=== PATIENT | female | born 1960 | race Caucasian/White ===

== ENCOUNTER 2018-11-04 12:29 | Inpatient (IN) | payer OTHER ==
[~2018-11-04] VITALS: Ht 167.6 cm; Wt 77.6 kg
--- NOTE | 2018-11-04 13:11 | NUR ---
TO ROOM 8 FOR EVAL.
--- NOTE | 2018-11-04 13:17 | NUR ---
DR. PICKENS AT BEDSIDE FOR MSE.
[2018-11-04 14:12] LABS: BASOPHIL % 0 % (0-2); PLATELET COUNT 251 x10^3mcL (130-400); RED CELL DISTRIBUTION WIDTH 13.4 % (11.5-14.5)
[2018-11-04 14:21] LABS: CALCIUM 8.4 mg/dL (8.5-10.1); CARBON DIOXIDE 24.8 mmol/L (21-32); CHLORIDE SERUM 98 mmol/L (98-107); CREATININE SERUM 0.9 mg/dL (0.6-1.0); GFR1 > 60 mL/min; GLUCOSE SERUM 134 mg/dL (74-106); POTASSIUM SERUM 3.4 mmol/L (3.5-5.1); SODIUM SERUM 134 mmol/L (136-145)
[2018-11-04 14:33] LABS: ALBUMIN 3.4 g/dL (3.4-5.0); ALKALINE PHOSPHATASE 61 U/L (46-116); ALT/SGPT 35 U/L (14-59); AST/SGOT 26 U/L (15-37); BILIRUBIN TOTAL 0.58 mg/dL (0.20-1.00); CHOLESTEROL 152 mg/dL (<200); HDL CHOLESTEROL 55 mg/dL (40-60); LIPASE 95 IU/L (73-393); MAGNESIUM 1.9 mg/dL (1.8-2.4); T4(THYROXINE) 8.6 ug/dL (4.7-13.3); TOTAL PROTEIN, SERUM 7.2 g/dL (6.4-8.2)
--- NOTE | 2018-11-04 15:12 | NUR ---
PATIENT OUT OF UNIT FOR XRAY AT THIS TIME//APR RN
[2018-11-04 15:35] LABS: microscopic required? YES; urine erythrocyte 2+ (NEGATIVE)
[2018-11-04 15:44] LABS: AMPHETAMINE QUAL UR NONE DETECTED (See below)
--- NOTE | 2018-11-04 16:25 | NUR ---
DR PICKENS AT BEDSIDE FOR REVAL AT THIS TIME, RN AT BEDSIDE//APR RN
[2018-11-04] MEDS ORDERED: TRINTELLIX5 MG PO (17:17)
[2018-11-04] MEDS ORDERED: LUNESTA2 M1 PO (17:18)
--- NOTE | 2018-11-04 17:21 | NUR ---
PATIENT AMBULATED TO RESTROOM, STATES PAIN "IS BETTER THAT EARLIER."//APR RN
--- NOTE | 2018-11-04 17:39 | NUR ---
DR LUNDBERG AT BEDSIDE FOR EVAL FOR ADMISSION AT THIS TIME//APR RN
[2018-11-04 18:19] LABS: CHOLESTEROL/HDL RATIO 2.9
--- NOTE | 2018-11-04 19:11 | NUR ---
PATIENT AMBULATED TO RESTROOM, RETURNED TO ROOM 8 AND C/O SEVERE LOW ABD PAIN 04/10. ADMITTING PRN MED GIVEN AT THIS TIME//APR RN
--- NOTE | 2018-11-04 19:15 | NUR ---
REPORT RECIEVED FROM GOLD TAMAYO. PT AWAKE AND ALERT, 2 BED RAILS UP, BED IN LOW AND LOCKED POSITION, CALL LIGHT W/IN REACH. NAD NOTED AT THIS TIME.
--- NOTE | 2018-11-04 20:08 | NUR ---
REPORT GIVEN TO MANDEEP TAMAYO
--- NOTE | 2018-11-04 20:15 | NUR ---
RECEIVED PT FROM ER FOR DIVERTICULITIS, INFLUENZA, PT IS A/O X4, VERBAL RESPONSIVE, ABLE TO TELL WHAT SHE NEEDS. LUNG SOUND WHEEZING WENDY, DENY ANY SOB AT THIS MOMENT, DENY ANY CHEST PAIN, BOWEL SOUND PRESENT ALL 4 QUADRANTS, C/O ABD PAIN AT LOWER QUADRANTS, 10/10, PEDAL PULSE PRESENT BOTH FEET, NO EDEMA, IV AT LEFT AC, NO LEAKING, NO INFILTRATION. ALL ADLS ASSIST, ALL NEED MET, CALL LIGHT IN REACH, WILL CONTINUE TO MONITOR.
[2018-11-04 21:02] VITALS: BP 156/83
[2018-11-05 05:58] VITALS: BP 152/84
--- NOTE | 2018-11-05 06:18 | NUR ---
PT. GROANING, C/O LOWER ABD. PAIN. PT. C/O PAIN WITH MOVEMENT, WHEN SHE PASSES GAS AND EVEN IF SHE HAS TO URINATE. DENIES ANY BLOOD IN HER URINE, DENIES BURNING WITH URINATION. PRN TORADOL GIVEN ORDERED. IVF INFUSING WELL, SITE REMAINS INTACT. WILL ENDORSE PT. CARE TO INCOMING NURSE.
--- NOTE | 2018-11-05 07:40 | NUR ---
RC'D PT RESTING IN BED WITH NO APPARENT SIGNS OF DISTRESS. A/A/O/X4, SPEECH CLEAR AND APPROPRIATE. DENIES VU/DIZZINESS. ON TELE, DENIES CHEST PAIN/PRESSURE. PALP PULSES, NO EDEMA NOTED. RESPIRATIONS EQUAL AND UNLABORED. WHEEZE NOTED. ON RA, DENIES SOB. ABDOMEN TENDER TO TOUCH. HYPOACTIVE BS. DENIES N/V. VOIDS FREELY. AMBULATORY. SKIN W/D/I. IV PATENT AND INTACT. BED IN LOW POSITION. CALL LIGHT IN REACH. WILL CONTINUE TO MONITOR
--- NOTE | 2018-11-05 08:36 | NUR ---
AM MEDICATIONS GIVEN. PT TOLERATED WELL. PT C/O OF PAIN, MEDICATED PER EMAR. RESPIRATIONS EUQAL AND UNLABORED. ON RA, DENIES SOB. BED IN LOW POSITION. CALL LIGHT IN REACH. WILL CONTINUE TO MONITOR
[2018-11-05 09:15] VITALS: BP 145/86
[2018-11-05 11:46] VITALS: Ht 167.6 cm; Wt 77.6 kg
--- NOTE | 2018-11-05 11:46 | NUR ---
PT RESTING IN BED C/O OF ABDOMINAL PAIN, MEDICATED PER EMAR. RESPIRATIONS EQUAL AND UNLABORED.ON RA, DENIES SOB. FAMILY AT BEDSIDE. BED IN LOW POSITION. CALL LIGHT IN REACH. WILL CONTINUE TO MONITOR
--- NOTE | 2018-11-05 17:54 | NUR ---
PT RESTING IN BED WITH NO APPARENT SIGNS OF DISTRESS. ON TELE, DENIES CHEST PAIN/PRESSURE. RESPIRATIONS EQUAL AND UNLABORED. ON RA, DENIES SOBN.PT MEDICATED PER EMAR FOR ABDOMINAL PAIN,. IV PATENT AND INTACT. BED IN LOW POSITION. CALL LIGHT IN REACH. WILL ENDORSE TO PIPELINE WELDER RN
[2018-11-05 18:09] VITALS: BP 143/83
--- NOTE | 2018-11-05 20:04 | NUR ---
PATIENT RECEIVED AWAKE, ALERT, ORIENTED X4 IN BED. RESPIRATION EVEN AND UNLABORED, OCC WHEEZING NOTED, POSITIVE DRY COUGH, ON ROOM AIR. ONGOING D5 1/2 NS AT 80 CC/HR INFUSING WELL AT THE LEFT ANTECUBITAL AREA. DENIES PAIN AT THIS TIME. LBM 11/04/18. VOIDING FREELY WITHOUT DIFFICULTY. AMBULATORY. SKIN DRY AND INTACT. ON TELE #12. ON DROPLET PRECAUTION FOR INFLUENZA A. WILL CONTINUE TO MONITOR.
[2018-11-05 20:45] VITALS: BP 157/86
--- NOTE | 2018-11-05 21:02 | NUR ---
PATIENT COMPLAINED OF SHARP, THROBBING ABDOMINAL PAIN, PS 10/10. MEDICATED WITH NORCO 7.5/325 MG PO ORDERED. WILL CONTINUE TO MONITOR.
[2018-11-06 05:41] VITALS: BP 147/93
--- NOTE | 2018-11-06 06:23 | NUR ---
PATIENT RESTING IN BED. RESPIRATION EVEN AND UNLABORED, ON ROOM AIR. DENIES PAIN AT THIS TIME. ONGOING 0.9% D5 1/2 NS AT 80 CC/HR INFUSING WELL AT THE LEFT ANTECUBITAL AREA. ASSISTED WITH NEEDS. SAFETY OBSERVED. PLACED BED IN THE LOWEST POSITION. PLACED CALL LIGHT WITHIN REACH AT ALL TIMES. MAINTAINED ON DROPLET PRECAUTION FOR INFLUENZA A.
[2018-11-06 07:08] LABS: CALCIUM 8.4 mg/dL (8.5-10.1); CARBON DIOXIDE 22.1 mmol/L (21-32); CHLORIDE SERUM 100 mmol/L (98-107); CREATININE SERUM 0.8 mg/dL (0.6-1.0); GFR1 > 60 mL/min; GLUCOSE SERUM 154 mg/dL (74-106); MAGNESIUM 1.9 mg/dL (1.8-2.4); PHOSPHOROUS 1.7 mg/dL (2.5-4.9); POTASSIUM SERUM 3.7 mmol/L (3.5-5.1); SODIUM SERUM 134 mmol/L (136-145)
--- NOTE | 2018-11-06 07:20 | NUR ---
SEEN RESTING WITH EYES CLOSED. BREATHING E/U ON ROOM AIR. TELE# 12 ST. IVF D5 1/2NS AT 80ML/HR INFUSING WELL. ON DROPLET ISOLATION.
[2018-11-06 08:01] VITALS: BP 152/88
--- NOTE | 2018-11-06 08:10 | NUR ---
SEEN IN BED AAOX4. NO RESP DISTRESS NOTED. ON DROPLET ISOLATION FOR INFLUENZA A. TELE#12 ST FX=813. KEPT NPO X ICE CHIPS. ABDN DISTENDED AND ROUND. DENIES PAIN STATED JUST NAUSEA. STATED ABLE AMBULATE TO BATHROOM. IVF D5 1/2NS AT 80ML/HR TO LAC INFUSING WELL. PLAN OF CARE DISCUSSED. CALL LIGHT PLACED WITHIN EASY REACH. SIDERAILS UP X2.
[2018-11-06 08:12] LABS: PLATELET COUNT 257 x10^3mcL (130-400); RED CELL DISTRIBUTION WIDTH 13.9 % (11.5-14.5)
[2018-11-06 08:13] LABS: BASOPHIL % 0 % (0-2)
--- NOTE | 2018-11-06 09:00 | NUR ---
STATED IV TO LAC HURTING, IV CATHETER REMOVED WITH CATHETER INTACT, NO ERYTHEMA, NOTED SWELLING TO SITE, DRSG APPLIED, ELEVATED ON PILLOW, WILL CONTINUE TO MONITOR. NEW IV CATHETER#22 INSERTED TO RFA WITH GOOD BLD RETURNED AND FLUSHED WELL. IVPB ZOSYN INFUSING WELL.
--- NOTE | 2018-11-06 11:33 | NUR ---
PATIENT MADE AWARE OF CT ABD/PELVIC WITH ORAL/IV CONTRAST. STATED I'M NOT READY TODAY. REFUSED A BIGGER IV CATHETER INSERTION. DOCTOR KLEVER MADE AWARE. ASSISTANT MEN'S SOCCER COACH NOTIFIED.
[2018-11-06 11:59] VITALS: BP 164/98
[2018-11-06 16:54] VITALS: BP 154/92
--- NOTE | 2018-11-06 19:06 | NUR ---
NO ANY DISTRESS THROUGHOUT SHIFT. TOLERATED TO CLEAR LIQUID DIET WELL. ROBITUSSIN GIVEN FOR DRY COUGH. TORADOL IV GIVEN X1 FOR ABDOMIAL PAIN WITH GOOD RELIEF. AMBULATORY WELL TO BATHROOM. ALL SCHEDULED MEDS GIVEN.
--- NOTE | 2018-11-06 19:20 | NUR ---
CARE ASSUMED FROM OUTGOING RN. PT STANDING UP NEXT TO BED. NO ACUTE DISTRESS NOTED. EVEN AND UNLABORED RESPIRATIONS NOTED ON RA. ON CLEAR LIQUID DIET. TOLERATED DINNER WELL. IV INTACT AND PATENT RUNNING FLUIDS PER EMAR. DENIES ANY PAIN AT THIS TIME. CALL LIGHT WITHIN REACH. WILL CONTINUE TO MONITOR.
[2018-11-06 20:18] VITALS: BP 157/101
[2018-11-06 21:20] VITALS: BP 154/94
--- NOTE | 2018-11-06 21:20 | NUR ---
BP 157/101 (129) NOTED. PT COMPLAINS OF 8/10 ABD PAIN. PT STATES SHE CHANGED POSITION FROM LAYING TO SITTING. MEDICATED ABD PAIN PER EMAR. RECHECKED BP 154/94. PT ABD PAIN BETTER 3/10. COMPLAINTS OF NAUSEA. WILL MEDICATED PER EMAR. PT IN NO ACUTE DISTRESS. EVEN AND UNLABORED RESPIRATIONS NOTED. IV INTACT AND PATENT. BED IN LOWEST POSITION. SIDE RAILS UP X2. CALL LIGHT WITHIN REACH. WILL REASSESS PAIN, NAUSEA, AND BP AND CONTINUE TO MONITOR.
--- NOTE | 2018-11-07 01:05 | NUR ---
PT RESTING COMFORTABLY IN BED. NO ACUTE DISTRESS NOTED. EVEN AND UNLABORED RESPIRATIONS NOTED ON RA. DENIES ANY PAIN AT THIS TIME ON TELE #12 [address] SR 82. IV PATENT AND INTACT RUNNING FLUIDS PER EMAR. BED IN LOWEST POSITION. SIDE RAILS UP X2. CALL LIGHT WITHIN REACH. WILL CONTINUE TO MONITOR.
[2018-11-07 05:10] VITALS: BP 161/100
--- NOTE | 2018-11-07 05:19 | NUR ---
BP 161/100 (112). MA: 86. BP TAKEN AFTER LAB DRAW. PT IN PAIN WANTING TO GO HOME. MADE AWARE. WILL CONTINUE TO MONITOR.
[2018-11-07 06:31] LABS: BASOPHIL % 0.1 % (0-2); PLATELET COUNT 261 x10^3mcL (130-400); RED CELL DISTRIBUTION WIDTH 13.2 % (11.5-14.5)
--- NOTE | 2018-11-07 06:32 | NUR ---
PT RESTED IN BED THROUGHOUT THE NIGHT. PT STATES UNABLE TO SLEEP BUT REFUSED AMBIEN PRN. NO ACUTE CHANGED NOTED THROUGHOUT THE NIGHT. PT COMPLAINT OF ABD PAIN AND NAUSEA MEDICATED PER EMAR. ALL SCHEDULED MEDS GIVEN ON TIME. ALL NEEDS MET AND TENDED TO. DROPLET ISOLATION IN PLACE. BED IN LOWEST POSITION. SIDE RAILS UP X2. CALL LIGHT WITHIN REACH. WILL CONTINUE TO MONITOR.
[2018-11-07 06:45] LABS: CALCIUM 8.2 mg/dL (8.5-10.1); CARBON DIOXIDE 23.7 mmol/L (21-32); CHLORIDE SERUM 99 mmol/L (98-107); CREATININE SERUM 0.7 mg/dL (0.6-1.0); GFR1 > 60 mL/min; GLUCOSE SERUM 138 mg/dL (74-106); MAGNESIUM 1.9 mg/dL (1.8-2.4); PHOSPHOROUS 1.3 mg/dL (2.5-4.9); SODIUM SERUM 134 mmol/L (136-145)
--- NOTE | 2018-11-07 07:02 | NUR ---
RECEIVED PT FROM GEOSPATIAL DEVELOPER NURSE. PT RESTING IN BED, AAOX4. NO ACUTE DISTRESS NOTED. DENIES ABD PAIN AT THIS TIME. RESP EVEN AND UNLABORED ON RA, EQUAL CHEST EXPANSION. ON TELE 12 SHOWING NSR, HR: 90. IV TO RFA W/ NO SIGNS OF INFILTRATION, IVF INFUSING WELL. BED IN LOWEST POSITION AND CALL LIGHT WITHIN REACH. WILL CONTINUE TO MONITOR.
[2018-11-07 07:53] VITALS: BP 160/94
--- NOTE | 2018-11-07 10:30 | NUR ---
PT EXPERIENCING N/V AT THIS TIME. VOMITTED CONTRAST FOR CT SCAN. MEDICATED ORDERED W/ PRN IV ZOFRAN. CT LAB MADE AWARE. DR. BOOTH MADE AWARE. PT TO RECEIVE ADDITIONAL 200CC OF ORAL CONTRAST. WILL CONTINUE TO MONITOR.
--- NOTE | 2018-11-07 12:16 | NUR ---
PT RESTING IN BED. AOX4. REPORTED MILD NAUSEA AND ABD PAIN AT THIS TIME, PAIN RATING OF 5/10 BUT TOLERABLE, NO MEDS REQUESTED AT THIS TIME. STATED SHE WOULD LIKE TO REST BEFORE TAKING SCHEDULED MEDS. HOB ELEVATED, SIDE RAILS UPX2, BED IN LOWEST POSITION AND CALL LIGHT WITHIN REACH. WILL CONTINUE TO MONITOR.
[2018-11-07 12:48] VITALS: BP 168/99
[2018-11-07 16:05] VITALS: BP 166/99
--- NOTE | 2018-11-07 17:51 | NUR ---
PT SITTING AT EDGE OF BED. AOX4. PT REPORTED FRUSTRATION ADHERING TO FULL LIQUID DIET, REQUESTED FOR CRACKERS. EXPLAINED LIMITATIONS WHILE ON DIET. OFFERED LEMON MESCALERO APACHE SODA AND JELLO. PT WAS CALM AND COOPERATIVE. STATED SHE FEELS ABD PAIN BUT TOLERABLE AT THIS TIME. RESP EVEN AND UNLABORED ON RA. IV TO RFA W/ NO SIGNS OF INFILTRATION, IVF INFUSING WELL. BED IN LOWEST POSITION AND CALL LIGHT WITHIN REACH. WILL ENDORSE TO ONCOMING NURSE.
--- NOTE | 2018-11-07 19:11 | NUR ---
RECEIVED PT FROM PREVIOUS SHIFT. CURRENTLY SITTING AT SIDE OF BED C/O NAUSEA. AAO. DENIES HEADACHE/DIZZINESS. ABLE TO MAKE NEEDS KNOWN. NO S/S ACUTE DISTRESS. BREATHING E/U ON RA, DENIES RESP. DISTRESS. PT REPORTS HAVING SMALL EPISODE OF DIARRHEA EARLIER. PT C/O 5/10 ABD PAIN THAT IS TOLERABLE. IV SITE CDI, IVF INFUSING WELL, NO ERYTHEMA OR SWELLING NOTED TO SITE. CALL LIGHT WITHIN REACH. SAFETY MEASURES IN PLACE. WILL CONTINUE TO MONITOR.
--- NOTE | 2018-11-07 19:34 | NUR ---
PAGED DR. OLIVER REGARDING K+ 3.0 AND PT REQUEST FOR ATIVAN FOR ANXIETY.
--- NOTE | 2018-11-07 20:15 | NUR ---
PT C/O NAUSEA, MEDICATED WITH ZOFRAN IVP. PT TOLERATED MEDICATION ADMINISTRATION. PT DID HAVE EPISODE OF GAGGING BUT MANAGED TO KEEP MEDICATIONS IN. WILL CONTINUE TO MONITOR.
[2018-11-07 20:49] VITALS: BP 149/92
--- NOTE | 2018-11-07 22:46 | NUR ---
PAGED DR. ANGEL REGARDING PHOS 1.3.
--- NOTE | 2018-11-08 00:51 | NUR ---
PT STILL C/O N/V AFTER ZOFRAN IVP. PT HAD 1X EPISODE OF EMESIS. PAGED DR. OLIVER.
--- NOTE | 2018-11-08 01:30 | NUR ---
ADMINISTERED PHENERGAN IVP FOR N/V. PT REFUSING ALL PO MEDS AT THIS TIME. PT SAYS "I DON'T WANT ANYTHING BECAUSE I'M JUST GOING TO THROW IT UP". TOLD PT PHENERGAN SHOULD HELP WITH N/V, PT STILL REFUSED. WILL CONTINUE TO MONITOR.
[2018-11-08 05:06] VITALS: BP 155/101
--- NOTE | 2018-11-08 05:57 | NUR ---
PT STATES "I DON'T WANT ANY PILL MEDICATIONS ANYMORE AFTER LAST NIGHT". PT REPORTED SOME RELIEF WITH PHENERGAN, BUT SAYS "I DON'T WANT TO TAKE ANYTHING BY MOUTH". TOLD PT IMPORTANCE OF COOPERATING WITH MEDICATION ADMINISTRATION, PT STILL REFUSED. WILL CONTINUE TO MONITOR.
--- NOTE | 2018-11-08 06:05 | NUR ---
PT C/O 04/10 GENERALIZED BODY PAIN. MEDICATED PER EMAR.
--- NOTE | 2018-11-08 06:27 | NUR ---
PT HAD RESTLESS NIGHT. NO S/S ACUTE DISTRESS. CURRENTLY SITTING IN BED WITH HOB ELEVATED. MEDICATED PER EMAR FOR PAIN. NO CHANGES OVERNIGHT. ALL NEEDS MET AND ATTENDED TO. CALL LIGHT WITHIN REACH. SAFETY MEASURES MAINTAINED. WILL ENDORSE CARE TO ONCOMING SHIFT.
[2018-11-08 06:57] LABS: CALCIUM 8.6 mg/dL (8.5-10.1); CHLORIDE SERUM 102 mmol/L (98-107); CREATININE SERUM 0.7 mg/dL (0.6-1.0); GFR1 > 60 mL/min; GLUCOSE SERUM 144 mg/dL (74-106); MAGNESIUM 1.8 mg/dL (1.8-2.4); PHOSPHOROUS 1.7 mg/dL (2.5-4.9); POTASSIUM SERUM 3.1 mmol/L (3.5-5.1); SODIUM SERUM 137 mmol/L (136-145)
--- NOTE | 2018-11-08 07:14 | NUR ---
RECEIVED PT FROM SHIFT NURSE A/OX4 RESTING IN BED. NO ACUTE DISTRESS NOTED. NO C/O OF NAUSEA OR VOMITING AT THIS TIME. IV INTACT AND PATENT. BED IN LOW POSITION. CALL LIGHT WITHIN REACH. WILL CONTINUE TO MONITOR.
--- NOTE | 2018-11-08 07:14 | NUR ---
BEDSIDE REPORT GIVEN TO BELKIS ORTIZ.
[2018-11-08 07:41] LABS: BASOPHIL % 0.2 % (0-2); PLATELET COUNT 347 x10^3mcL (130-400); RED CELL DISTRIBUTION WIDTH 13.5 % (11.5-14.5)
[2018-11-08 09:18] VITALS: BP 155/98
--- NOTE | 2018-11-08 09:57 | NUR ---
PT ASLEEP BUT AROUSABLE. NO ACUTE DISTRESS NOTED. CALL LIGHT WITHIN REACH. WILL CONTINUE TO MONITOR.
--- NOTE | 2018-11-08 12:19 | NUR ---
PT C/O OF COUGHING. GAVE ROBITUSSIN ORDERED. WILL CONTINUE TO MONITOR.
--- NOTE | 2018-11-08 13:21 | NUR ---
Initial Nutrition Assessment: Sarmad Chew Rm [id number] Dx: Diverticulitis, Influenza PMHx: Depression PSHx: Labs: Na 137, k 3.1L, Glucos. 144H, BUN 6.0L, Phos. 1.7L, Hgb 12.0, Hct 35L Meds: Ambien, Ativan, Dextrose 5%, K-Phos neutral, Lactinex, Phenergan, Potassium phosphate in sodium chl 0.9% Diet: Full liquid PO Intake: (11/05) NPO, (11/06) Full liquid lunch-20%, (11/07) Full liquid breakfast-30%, Full liquid dinner- 50% Ht: 167.64cm, 66in Wt: 77.564kg, 170# BMI: 27.6 kg/m2 (Overweight) Bed scale: 179# IBW: 135#, 61kg %IBW: 130% UBW: 165# Age: 58/F Food Allergies: NKA Skin: Intact Trav: 21 Edema: None GI: Last BM: 11/06/18 Per H&P: Patient is a 58 year old female with a PMH of depression comes in for severe abdominal pain. At its worse she says it is an 05/11. Nothing makes it better and it got worse progessively over the last 4 days. It starts in the suprapubic region and does not radiate much anywhere else. The patient saw her brother 4 days ago who had flu like symptoms and both her and her got sick. Additionally, the patient has been feeling dizzy, cold sweats, chills, abdominal pain and a sore throat. Of note, the patient said that she has a lot of scar tissue in the past when she had her C section. The obgyn said "I was barely able to close because of the scar tissue". Pt. Visit: Pt was alert and very eager to know what foods she could eat because she had been in so much pain. Pt said her would tell her to just eat anything, but she wants to try and change her diet so her abdomen doesn't hurt her anymore. At home she eats a regular diet. She ate a lot of nuts because she heard they were good for her, but then she said they affected her intestines. I went over a low fiber diet with her and showed her examples of foods to eat and foods to watch out for. I encouraged small frequent meals because pt sts she is always busy and will maybe eat 1-2meals a day. I went over cutting back on caffeine because pt states she drinks a lot of coffee. Pt took the packet and said would also try to cut back on greasy, fatty foods because she will usually grab fast food on the way home from work. Problem with: N: Yes V: Yes D: Yes C: Yes Problems with: Chewing: No Swallowing: No Current appetite: Fair Recent wt change: None %wt change: None Vitamin/Supplement use: None Special diet at home: None Physical activity: Just walks around at work Education: NCM on Low Fiber diet. Pt took the packet and we went over trying to increase her meals for the day, but in small portions. Also discussed foods low in fiber for diverticulitis. Estimated Nutritional Needs Based on adjusted body weight 65 kg Energy: 6703-3325 kcal/d (25-30kcal/kg) (Due to inflammation) Protein: 52-65 g/d (0.8-1.0g/kg) (For maintenance) Fluid: 1600-2000ml/d (1 ml/kcal) or per doctor Nutrition Diagnosis 1. Inadequate oral intake r/t having n/v and pain in abdomen aeb poor PO intake of 50%. Intervention 1. Continue with full liquid diet until appropriate to increase textures. 2. Education given on low fiber diet Monitor/Evaluate Goal: PO intake at least 75% of estimated needs Monitor: PO intake, Labs, GI function, tolerance of diet MR F/U 11/11-11/13
--- NOTE | 2018-11-08 13:21 | NUR ---
Intervention 1. Continue with full liquid diet until appropriate to increase textures. 2. Education given on low fiber diet
[2018-11-08 14:06] VITALS: BP 156/93
--- NOTE | 2018-11-08 15:13 | NUR ---
PT ASLEEP BUT AROSUABLE. AT BEDSIDE. CALL LIGHT WITHIN REACH. WILL CONTINUE TO MONITOR.
[2018-11-08 15:24] VITALS: BP 134/80
--- NOTE | 2018-11-08 18:28 | NUR ---
PT LYING IN BED WATCHING TV. NO ACUTE DISTRESS NOTED. NO C/O OF ABD PAIN AT THIS TIME. IV INTACT AND PATENT. BED IN LOW POSITION. CALL LIGHT WITHIN REACH. WILL BE ENDORSED.
[2018-11-08 19:40] VITALS: BP 149/84
--- NOTE | 2018-11-08 20:00 | NUR ---
RECIEVED PATIENT FROM SAMIA TAMAYO. PATIENT A/0 X4 REPORTING 10/10 ABDOMINAL PAIN. WILL MEDICATE PER EMAR. NO SOB ON RA. PATIENT DENIES N/V. ABDOMEN IS ROUND AND SOFT, BS ACTIVE. PATIENT REPORTS HAVING FORMED BM. IV IS INFUSING WELL WITHOUT ERYTHEMA OR INFILTRATION. DROPLET PRECAUTIONS IN PLACE FOR INFLUENZA A. BED LCOKED AND IN LOWEST POSIITON. CALL LIGHT AND BEDSIDE TABLE WITHIN REACH.
--- NOTE | 2018-11-08 20:16 | NUR ---
PATIENT MEDICATED WITH TORADOL 30 MG IV PER EMAR FOR 10/10 LLQ ABDOMINAL PAIN.
--- NOTE | 2018-11-08 21:22 | NUR ---
PATIENT GIVEN AMBIEN AND ROBITUSSEN PO PER EMAR FOR COUGH AND TROUBLE SLEEPING. WILL CONTINUE TO MONITOR.
[2018-11-09 05:32] VITALS: BP 157/96
--- NOTE | 2018-11-09 06:20 | NUR ---
PATIENT GIVEN TORADOL IVP PER EMAR FOR 7/10 ABDOMINAL PAIN.
--- NOTE | 2018-11-09 06:39 | NUR ---
PATIENT IS RESTING IN BED, EYES CLOSED, BREATHS EVEN. NO FURTHER SIGNIFICANT EVENTS THIS SHIFT. IV INFUSING WITHOUT ERYTHEMA OR INFILTRATION. BED LOCKED AND IN LOWEST POSITION. CALL LIGHT AND BEDSIDE TABLE WITHIN REACH. WILL ENDORSE CARE TO MORNING NURSE.
[2018-11-09 06:47] LABS: BASOPHIL % 0.2 % (0-2); PLATELET COUNT 395 x10^3mcL (130-400)
--- NOTE | 2018-11-09 07:05 | NUR ---
RECEIVED PT FROM SHIFT NURSE ASLEEP BUT AROUSABLE. NO ACUTE DISTRESS NOTED. IV INTACT AND PATENT. BED IN LOW POSITION. CALL LIGHT WITHIN REACH. WILL CONTINUE TO MONITOR.
[2018-11-09 07:19] LABS: CALCIUM 7.8 mg/dL (8.5-10.1); CARBON DIOXIDE 27.1 mmol/L (21-32); CHLORIDE SERUM 100 mmol/L (98-107); CREATININE SERUM 0.6 mg/dL (0.6-1.0); GFR1 > 60 mL/min; GLUCOSE SERUM 123 mg/dL (74-106); MAGNESIUM 1.6 mg/dL (1.8-2.4); PHOSPHOROUS 3.1 mg/dL (2.5-4.9); SODIUM SERUM 135 mmol/L (136-145)
[2018-11-09 07:45] LABS: POTASSIUM SERUM 2.7 mmol/L (3.5-5.1)
[2018-11-09 09:06] VITALS: BP 154/84
[2018-11-09] MEDS ORDERED: ZES10 PO (09:21)
[2018-11-09] MEDS ORDERED: FLA500 PO (09:23)
[2018-11-09] MEDS ORDERED: TOR10 PO (09:25)
[2018-11-09] MEDS ORDERED: TAM75 PO (09:28)
[2018-11-09] MEDS ORDERED: BD LACTINEX1.4 MG PO (09:30)
--- NOTE | 2018-11-09 09:31 | NUR ---
PT C/O OF NAUSEA. GAVE ZOFRAN ORDERED. PT C/O OF COUGH. GAVE ROBITUSSIN ORDERED. WILL CONTINUE TO MONITOR.
--- NOTE | 2018-11-09 12:15 | NUR ---
PT LYING IN BED TALKING WITH . NO C/O OF NAUSEA. CALL LIGHT WITHIN RAECH. WILL CONTINUE TO MONITOR.
[2018-11-09 12:56] VITALS: BP 154/84
--- NOTE | 2018-11-09 14:16 | NUR ---
PT A/OX4 UPON DC. NO ACUTE DISTRESS NOTED. DENIES ABD PAIN. DENIES N/V. EDUCATION PROVIDED. NEW RX GIVEN. FOLLOW UP APT GIVEN. PT VERBALIZED UNDERSTANDING. IV REMOVED AND CATH INTACT. PERSONAL BELONGINGS TAKEN HOME. ACCOMPANIED BY AND RN TO LOBBY VIA WHEELCHAIR.
== END 2018-11-09 14:08 | disposition home or self-care (01) | DRG 391 ==
LOC: ED 12:29 → DU 18:20 → MU 18:20 → DU 11-05 08:15 → MU 11-08 14:06
PROVIDERS: Emergency Medicine; Family Medicine; ADMIT Internal Medicine
DX: K57.20 Diverticulitis of large intestine with perforation and abscess without bleeding (principal); N17.0 Acute kidney failure with tubular necrosis; E87.1 Hypo-osmolality and hyponatremia; E87.6 Hypokalemia; F32.9 Major depressive disorder, single episode, unspecified; J11.2 Influenza due to unidentified influenza virus with gastrointestinal manifestations; Z68.26 Body mass index [BMI] 26.0-26.9, adult; Z98.51 Tubal ligation status
CPT/HCPCS: 82962; 87804; J0295; J1885; J1956; J2060; J2270; J2405; J2543; J2550; J3010; J3475; J3480; J3490; J7030; J7040; J7042; J8597; Q0092; Q9966; Q9967